=== PATIENT | male | born 1965 | race Caucasian/White ===

== ENCOUNTER 2016-11-01 16:00 | Outpatient (RCR) | payer BC, OTHER ==
--- NOTE | 2016-10-18 14:40 | PT/OT/ST INITIAL EVALUATION ---
Department of Health and Human Services Form Approved [facility] Care Financing Administration OMB No. [id number] PLAN OF CARE/ASSESSMENT FOR OUTPATIENT REHABILITATION (Complete for Initial Claims Only) 1. PATIENT'S NAME Shar Thompson 2. ACC # [id number] 3. HICN NA 4. PROVIDER NO. [id number] 5. TYPE: PT 6. PRIOR HOSPITALIZATION NA 7. PRIMARY DX Lumbar back pain 8. SECONDARY DX NA 9. ONSET DATE Several years ago 10. REFERRAL DATE 10/14/2016 11. SOC. DATE 10/17/2016 12. TIME OF EVAL 15:[address] Jeremy Singh 13. CHARGES/UNITS NA 14. G CODES NA 15. PRIOR LEVEL OF FUNCTION; PERTINENT HISTORY (Prior therapy results, reason for referral.) S: Prior to the therapy session, the patient did consent to the evaluation and treatment. 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 The patient also completes farming tasks outside of work. The patient notes an aggravation of symptoms over the last several months with no specific injury causing the onset of pain. Prior level of function: The patient was able to go hunting, bowling, and work outside without difficulty or pain. The patient is active and does work 12 hour days at times, spending a lot of his day sitting running heavy construction equipment. Current level of function: The patient is still working inspection clerk. He does have difficulty climbing into the cab of the construction equipment. He also reports increased difficulty ambulating on uneven surfaces secondary to the low back pain. Therapy History: The patient did have physical therapy several years ago for this issue with some benefit; however, he denies compliance with stretching that was recommended at that time. Pain rating: The maximal pain level is an 8 to 10/10. The pain is described as variable in intensity and is present along the low back part, greatest on the right side. The patient denies any numbness, tingling or radicular symptoms into the lower extremity. Aggravating factors: Including jumping out of the cab and leaning forward. Relieving factors: Include an epidural, which his last one was in 2002. He does take naproxen 2 pills in the morning and 2 pills in the evening, massage and sitting also help his pain. Diagnostic testing: No recent diagnostic testing has been performed at this time. Past medical history: History of low back pain, hypertension and thyroid issues. Current medications: The patient is currently taking naproxen for pain. He also takes a thyroid medication, as well as a blood pressure medication, but did not provide the names of these. Patient's Goal: The patient's goal for physical therapy is to become pain free, if that is possible. 16. INITIAL ASSESSMENT/SAFETY PRECAUTIONS/MEDICAL COMPLICATIONS (Level of function at start of care. Be specific, use objective measures, list problems.) O: APPEARANCE AND OBSERVATION: Observation of the patient's motion when performing lumbar range of motion into flexion, extension and side bending he demonstrates impaired lumbar spine mobility. The patient's left lumbar side bending is limited to 25% in comparison to the right. The patient also demonstrates poor sequences between the gluteal and low lumbar paraspinals with prone hip extension. The patient's right lower extremity moves from short to long with the long sitting test. No Trendelenburg stance is noted with single leg standing on the right or left. Observation of the patient's squat technique reveals decreased utilization of hip musculature in comparison to other lower extremity musculature. PALPATION: The patient has tenderness to palpation of the right SI joint and palpable tightness throughout the low thoracic and lumbar paraspinals. SPECIAL TESTS: Negative lumbar shear test for instability. He scores an 11/50 on the modified Oswestry, positive straight leg raise test for recreation of increased pain on the right. Negative on the left and negative slump test for nerve tension bilaterally. RANGE OF MOTION/FLEXIBILITY: Hamstring length is equal and is not significantly limited. STRENGTH: Bilateral hip flexion is 5/5. Right hip abduction 5/5, left 4/5. Hip extension is limited to 4/5 bilaterally with poor firing mechanics in the gluteals compared to hamstrings and lumbar paraspinals. Knee flexion on the right is 5/5, left 4+/5. Bilateral knee extension 5/5. Bilateral ankle dorsiflexion 5/5. TODAY'S TREATMENT: Today's treatment consisted of educating the patient on the results of the evaluation and recommended treatment plan. The physical therapist initiated a stretching regimen including single knee to chest and double knee to chest stretching, as well as initiating transverse abdominis isometric exercises. The patient was provided a copy of these exercises to complete at home on a daily basis. Pain and inflammation was addressed with a dexamethasone iontophoresis patch applied to the right SI joint with the patient educated on the purpose of the patch and proper removal. 17. INITIAL POC: (Specify procedures, modalities, short and mcc goals) A: The patient presents to physical therapy with chronic low back pain and a recent exacerbation of symptoms over the last several months. The patient's pain does affect his ability to complete work tasks without pain, as well as has limited his tolerance on ambulating on uneven surfaces such as what he has to do for hunting. The patient does have impaired lumbar spine to hip mobility, as well as lower extremity weakness. PROGNOSIS: The patient does have a good outcome in physical therapy with regular therapy attendance and compliance with his home exercise program, as well as activity modification recommendation. INFORMED CONSENT: The diagnosis, prognosis, treatment plan, risks and expected outcomes were discussed with this patient and he is agreeable to today's established plan of care. The patient does report he will have variable attendance to therapy secondary to having to work out of town at times due to his job. SHORT TERM GOALS: 1. The patient will report independence and compliance with his home exercise program. 2. The patient will demonstrate the ability to perform 10 squats with proper body mechanics. 3. The patient will report a 50% reduction in maximum pain rating in the low back. 4. The patient will tolerate 15 minutes of core strengthening with an exacerbation of low back pain. RESIDENTIAL GOALS X4 WEEKS: 1. The patient will improve his modified Oswestry score by a minimum of 7% to demonstrate functional mobility. 2. The patient will have 5/5 bilateral hip extension, left hip abduction, knee flexion and ankle dorsiflexion strength. 3. The patient will demonstrate independence with self-correction of innominate in order to provide him mcc benefit in this issue as it has been recurrent in the past. 4. The patient will report being able to work a full shift with pain no greater than a 4/10 in the low back. 5. The patient will demonstrate proper lifting mechanics of up to 40 pounds as he has to do things occasionally at work. P: Plan to treat this patient 3 times a week for 4 weeks in order to address chronic low back pain with recent exacerbation as well as lower extremity weakness and decreased coordination of low back and hip movement. Treatment will include modalities as needed to address pain and inflammation. Manual therapy techniques will be utilized to improve muscle mobility and flexibility. Therapeutic exercise will be utilized emphasis on improving lower extremity flexibility, low back flexibility and then progressive strengthening with emphasis on trunk control. Neuromuscular education will be used as well as functional training emphasis on proper lifting mechanics and body positioning. The patient was given a home exercise program and this will be progressed as needed. Thank you for the referral of this patient. 18. FREQUENCY 3 times week 19. DURATION 4 weeks 20. FUNCTIONAL LEVEL (End of claim period) 21. PHYSICIAN SIGNATURE ? ON FILE OR ENTER HERE: 22. DATE: I certify the need for these services furnished under this plan of care and if for partial hospitalization. 23. CERTIFICATION FROM THROUGH FORM [facility]-[id number]
[~2016-11-01 16:00] MED LIST: ATOR20TA PO; LEVO100T PO; PROP40TA5 PO
== END 2016-11-11 12:00 | disposition home or self-care (01) ==
LOC: PT 16:00
PROVIDERS: ATTEND Family Medicine
DX: M54.5 Low back pain (principal)